=== PATIENT | male | born 1965 | race Caucasian/White ===

== ENCOUNTER 2019-09-26 09:50 | Emergency (ER) | payer SELFPAY ==
[~2019-09-26] VITALS: Ht 188 cm; Wt 96.7 kg
--- NOTE | 2019-09-26 10:13 | NUR ---
PT PRESENTED TO ED D/T DOUBLE VISION SINCE 0700 THIS AM. PT ALSO HAS COMPLAINTS OF "BLIND SPOTS." PT STATES HX OF "MINOR STROKES." STATES "RAN OUT OF BLOOD PRESSURE MEDICATION TWO WEEKS AGO." DENIES ANY PRESCRIBED MEDICATION. CMS+. ERMD AT BEDSIDE EVALUATING PT.
--- NOTE | 2019-09-26 10:17 | NUR ---
CODE NEURO CALLED. BGL 93.
--- NOTE | 2019-09-26 10:20 | NUR ---
pt to CT with tigist and RN, on monitor
--- NOTE | 2019-09-26 10:20 | NUR ---
[address] code [address] paged [phone] dr frazier paged [phone] dr frazier returned call and spoke with dr rm
[2019-09-26 10:29] LABS: BASOPHILS # (AUTO) 0.04 x10^3/uL (0-0.1); BASOPHILS % (AUTO) 0 % (0-1); EOSINOPHILS # (AUTO) 0.28 x10^3/uL (0-0.4); EOSINOPHILS % (AUTO) 2 % (1-7); LYMPHOCYTES # (AUTO) 2.06 x10^3/uL (1-3.4); LYMPHOCYTES % (AUTO) 16 % (22-44); MD NO; MEAN CORPUSCULAR HEMOGLOBIN 30.2 pg (27.5-34.5); MEAN CORPUSCULAR HGB CONC 33.7 g/dL (33.2-36.2); MEAN CORPUSCULAR VOLUME 89.7 fL (81-97); MONOCYTES # (AUTO) 0.83 x10^3/uL (0.2-0.8); MONOCYTES % (AUTO) 7 % (2-9); NEUTROPHILS # (AUTO) 9.58 x10^3/uL (1.8-6.8); NEUTROPHILS % (AUTO) 75 % (42-75); PLATELET COUNT 233 x10^3/uL (130-400); RED BLOOD COUNT 5.45 x10^6/uL (4.38-5.82); RED CELL DISTRIBUTION WIDTH 13.6 % (9.4-14.8)
--- NOTE | 2019-09-26 10:35 | NUR ---
RN AND TECH TRANSPORTED PT FROM CT SCAN TO MRI. SUPERVISOR BURLING AND JOINING TO BRING PT BACK TO ED.
[2019-09-26 10:40] LABS: INTERNATIONAL NORMALIZED RATIO 0.98 (0.93-1.1); PROTHROMBIN TIME 10.4 Seconds (9.6-11.5)
[2019-09-26] MEDS ORDERED: OMNIPAQUE 350 MG/ML, 100ML BOTTLE ONE (10:46)
[2019-09-26] MEDS ORDERED: PROCHLORPERAZINE 5 MG/ML, 2ML IVPush ONE (11:00)
[2019-09-26] MEDS ORDERED: DIPHENHYDRAMINE 50 MG/ML, 1ML IVPush ONE (11:00)
--- NOTE | 2019-09-26 11:02 | NUR ---
PT RETURNED FROM MRI.
--- NOTE | 2019-09-26 11:04 | NUR ---
PT STATES VISION HAS IMPROVED WITH GLASSES. DENIES DOUBLE VISION WITH GLASSES ON. STATES BEFORE WHEN WEARING GLASSED WAS SEEING DOUBLE VISION. AWAITING SOC NEUROLOGIST.
[2019-09-26] MEDS ORDERED: DIPHENHYDRAMINE 50 MG/ML, 1ML ONE (11:06)
[2019-09-26] MEDS ORDERED: PROCHLORPERAZINE 5 MG/ML, 2ML ONE (11:06)
--- NOTE | 2019-09-26 11:07 | NUR ---
RN INFORMED MD THAT PT DENIES DOUBLE VISION WITH GLASSES AT THIS TIME.
[2019-09-26 11:27] VITALS: BP 140/79
--- NOTE | 2019-09-26 11:27 | NUR ---
PT DC HOME IN A STABLE CONDITION. PIV WAS REMOVED WITH TIP INTACT. DC INSTRUCTIONS WERE DISCUSSED WITH PT. PT VERBALIZED UNDERSTANDING. NO FURTHER QUESTIONS OR CONCERNS WERE EXPRESSED AT THAT TIME.
== END 2019-09-26 11:29 | disposition home or self-care (01) ==
LOC: ED 10:41
DX: H53.133 Sudden visual loss, bilateral (principal); G43.909 Migraine, unspecified, not intractable, without status migrainosus; Z86.73 Personal history of transient ischemic attack (TIA), and cerebral infarction without residual deficits
CPT/HCPCS: 36415; 70450; 70496; 70498; 70551; 80047; 82962; 85025; 85610; 85730; 93005; 99291; Q9967